=== PATIENT | female | born 1970 | race Caucasian/White ===

== ENCOUNTER 2017-07-25 17:48 | Emergency (ER) | payer MEDICAID ==
[~2017-07-25 17:48] MED LIST: ACETAMINOPHEN-H1 TA2 PO; AMOXICILLIN500 M2 PO; ATENOLOL50 M1 PO; AVPAK AZITHROM250 MG PO; BIAXIN 500MG T500 MG PO; CIPRO 500MG TA500 MG PO; CLONAZEPAM 1MG T1 MG PO; COUMADIN 5MG TAB5 MG PO; COUMADIN 7.5MG7.5 MG PO; DANAZOL200 MG PO; DEXAMETHASONE4 MG PO; DULOXETINE60 MG PO; EFFEXOR XR 75MG75 MG PO; EFFEXOR75 MG PO; FIORICET 325 MG1 TAB PO; HCTZ/TRIAMTEREN1 CAP PO; HYDROCHLOROTH12.5 M1 PO; HYDROXYZINE HCL25 M1 PO; IBUPROFEN800 MG PO; K-DUR 20MEQ TA20 MEQ PO; KEFLEX 500MG.500 MG PO; LEVAQUIN500 MG PO; LOPRESSOR 25MG.25 MG PO; LORTAB 5/500 501 TAB PO; LOVENOX80 MG/0.8 SC; MEDROL 4MG. DOSE4 MG PO; METOPROLOL25 MG PO; MICRO-K 10 MEQ10 MEQ PO; MIGRANAL4 MG/ML NS; MOTRIN 600MG.600 MG PO; MOTRIN800 MG PO; NAPROSYN500 M1 PO; PAROXETINE20 MG PO; PHENERGAN 25MG.25 M1 PO; PREMARIN1.25 MG; REQUIP 1 MG TABL1 MG PO; REQUIP0.5 MG PO; TOPIRAMATE 100100 M1 PO; WARFARIN SOD5 MG PO; WARFARIN SODIU7.5 MG PO; WARFARIN SODIUM6 MG PO; ZONEGRAN100 MG; ZONEGRAN100 MG PO; ZONISAMIDE100 MG PO
== END 2017-07-25 19:19 | disposition home or self-care (01) ==
LOC: UTC 17:48
DX: Z53.29 Procedure and treatment not carried out because of patient's decision for other reasons (principal)